=== PATIENT | female | born 1970 | race African-American/Black ===

== ENCOUNTER 2018-01-07 17:14 | Emergency (ER) | payer OTHER ==
[~2018-01-07] VITALS: Ht 170.2 cm; Wt 62.1 kg
[2018-01-07] MEDS ORDERED: EQUETRO100 MG PO (17:21)
[2018-01-07 18:46] LABS: URINE BILIRUBIN NEGATIVE (Negative); URINE BLOOD TRACE (Negative); URINE CLARITY CLEAR; URINE COLOR YELLOW; URINE GLUCOSE-RANDOM NEGATIVE (Negative); URINE KETONES TRACE (Negative); URINE LEUKOCYTES NEGATIVE (Negative); URINE NITRITE NEGATIVE (Negative); URINE PROTEIN TRACE (Negative)
[2018-01-07 19:00] VITALS: BP 106/72
== END 2018-01-07 19:00 | disposition home or self-care (01) ==
LOC: M.ERS 17:14
PROVIDERS: Physician Assistant Surgical
DX: M25.551 Pain in right hip (principal); V49.59XA Passenger injured in collision with other motor vehicles in traffic accident, initial encounter; Y93.89 Activity, other specified; Y92.89 Other specified places as the place of occurrence of the external cause; Y99.8 Other external cause status